=== PATIENT | female | born 1955 | race Two or more races ===

== ENCOUNTER 2021-06-15 03:46 | Emergency (ER) | payer OTHER ==
[~2021-06-15] VITALS: Ht 170.2 cm; Wt 99.8 kg
[2021-06-15] MEDS ORDERED: ZESTRIL10 M1 PO (03:57)
[2021-06-15] MEDS ORDERED: BENADRYL50 MG PO (03:58)
[2021-06-15] MEDS ORDERED: MEDROLPACK PO (10:25)
[2021-06-15] MEDS ORDERED: LOSARTAN POTASS25 MG PO (10:25)
[2021-06-15] MEDS ORDERED: ALLERGY RELIEF10 M3 PO (10:25)
[2021-06-15] MEDS ORDERED: PEPCID AC20 MG PO (10:25)
== END 2021-06-15 11:35 | disposition home or self-care (01) ==
LOC: ER 03:46
DX: T78.3XXA Angioneurotic edema, initial encounter (principal)

== ENCOUNTER 2022-09-27 09:53 | Outpatient (CLI) | payer OTHER ==
[~2022-09-27 09:53] MED LIST: ALLERGY RELIEF10 M3 PO; BENADRYL50 MG PO; LOSARTAN POTASS25 MG PO; MEDROLPACK PO; PEPCID AC20 MG PO; ZESTRIL10 M1 PO
== END 2022-09-27 09:55 | disposition home or self-care (01) ==
LOC: LAB 09:53
PROVIDERS: ATTEND Internal Medicine Gastroenterology
DX: R10.13 Epigastric pain (principal)

== ENCOUNTER 2022-09-29 08:45 | Outpatient (CLI) | payer OTHER | END 2022-09-29 08:48 | disposition home or self-care (01) | LOC: SONOGRAMA 08:45 | PROVIDERS: ATTEND Internal Medicine Gastroenterology | DX: I10 Essential (primary) hypertension (principal); K76.89 Other specified diseases of liver ==

== ENCOUNTER 2022-10-04 12:31 | Outpatient (CLI) | payer OTHER | END 2022-10-04 12:32 | disposition home or self-care (01) | LOC: NUCLEAR 12:31 | PROVIDERS: ATTEND General Practice | DX: Z13.820 Encounter for screening for osteoporosis (principal); M85.89 Other specified disorders of bone density and structure, multiple sites; E55.9 Vitamin D deficiency, unspecified ==

== ENCOUNTER 2022-10-04 13:00 | Outpatient (CLI) | payer OTHER | END 2022-10-04 13:02 | disposition home or self-care (01) | LOC: LAB 13:00 | PROVIDERS: ATTEND General Practice | DX: N39.0 Urinary tract infection, site not specified (principal); R31.9 Hematuria, unspecified; K76.89 Other specified diseases of liver; R94.5 Abnormal results of liver function studies ==

== ENCOUNTER 2022-10-11 08:44 | Outpatient (CLI) | payer OTHER | END 2022-10-11 09:00 | disposition home or self-care (01) | LOC: TOM 08:44 | PROVIDERS: ATTEND General Practice | DX: K76.89 Other specified diseases of liver (principal); R94.5 Abnormal results of liver function studies | CPT/HCPCS: 74177; Q9965 ==

== ENCOUNTER 2022-10-11 10:14 | Outpatient (CLI) | payer OTHER | END 2022-10-11 10:23 | disposition home or self-care (01) | LOC: LAB 10:14 | PROVIDERS: ATTEND Radiology Diagnostic Radiology | DX: K76.89 Other specified diseases of liver (principal) ==

== ENCOUNTER 2022-12-29 12:16 | Outpatient (CLI) | payer OTHER | END 2022-12-29 12:21 | disposition home or self-care (01) | LOC: RAD 12:16 | DX: M25.562 Pain in left knee (principal) ==

== ENCOUNTER → 2023-02-09 | Outpatient (CLI) | payer OTHER | END | disposition home or self-care (01) | LOC: TOM 11:27 | DX: R04.0 Epistaxis (principal); I10 Essential (primary) hypertension ==

== ENCOUNTER 2023-08-22 09:42 | Outpatient (CLI) | payer OTHER | END 2023-08-22 09:47 | disposition home or self-care (01) | LOC: MAMO-SONO 09:42 | PROVIDERS: ATTEND General Practice | DX: K76.89 Other specified diseases of liver (principal); Z12.31 Encounter for screening mammogram for malignant neoplasm of breast ==

== ENCOUNTER 2023-10-30 10:45 | Outpatient (CLI) | payer OTHER | END 2023-10-30 10:46 | disposition home or self-care (01) | LOC: NUCLEAR 10:45 | PROVIDERS: ATTEND General Practice | DX: I87.2 Venous insufficiency (chronic) (peripheral) (principal); R20.2 Paresthesia of skin ==

== ENCOUNTER → 2023-10-31 10:54 | Outpatient (CLI) | payer OTHER | END | disposition home or self-care (01) | LOC: NUCLEAR 10:54 | PROVIDERS: ATTEND General Practice | DX: I73.9 Peripheral vascular disease, unspecified (principal); R20.2 Paresthesia of skin ==

== ENCOUNTER 2023-12-24 14:14 | Outpatient (CLI) | payer OTHER | END 2023-12-24 14:19 | disposition home or self-care (01) | LOC: RAD 14:14 | PROVIDERS: ATTEND General Practice | DX: M54.50 Low back pain, unspecified (principal); M62.830 Muscle spasm of back ==

== ENCOUNTER 2023-12-31 13:00 | Outpatient (CLI) | payer OTHER | END 2023-12-31 13:08 | disposition home or self-care (01) | LOC: MRI 13:00 | PROVIDERS: ATTEND General Practice | DX: R20.2 Paresthesia of skin (principal); M54.31 Sciatica, right side; M54.50 Low back pain, unspecified | CPT/HCPCS: 72148 ==

== ENCOUNTER 2024-09-20 17:32 | Emergency (ER) | payer OTHER ==
[~2024-09-20] VITALS: Ht 170.2 cm; Wt 80.3 kg
[2024-09-20] MEDS ORDERED: MEDI-MECLIZINE25 MG (18:01)
[2024-09-20] MEDS ORDERED: AMOX1TAB5 (18:02)
[2024-09-20] MEDS ORDERED: COZAAR25 MG PO (18:03)
[2024-09-20] MEDS ORDERED: AMITRIPTYLINE H25 MG PO (18:03)
[2024-09-20] MEDS ORDERED: AMLODIPINE-OLM1 EAC2 (18:04)
[2024-09-20] MEDS ORDERED: ALLERGY RELIEF10 M3 (18:04)
[2024-09-20] MEDS ORDERED: ACETAMINOPHEN 325 MG TABLET PO STA (18:57)
[2024-09-20 20:26] LABS: HEMATOCRIT 39.9 % (36.0-45.00); HEMOGLOBIN 13.4 g/dL (12.0-15.00); MEAN CELL VOLUME 84.3 fL (80.00-100.00); MEAN CORPUSCULAR HEMOGLOBIN 28.3 pg (27.00-32.0); MEAN CORPUSCULAR HGB CONC 33.6 g/dl (32.0-36.0); RED BLOOD COUNT 4.73 M/uL (4.00-6.00); RED CELL DISTRIBUTION WIDTH 13.8 % (11.5-14.5)
[2024-09-20 20:27] LABS: PLATELET COUNT 71 K/uL (150-450)
[2024-09-20 20:42] LABS: PH,URINE 5.5 (5.0-8.0); URINE APPEARANCE Clear; URINE BILIRRUBIN Small (NEGATIVE); URINE BLOOD Large; URINE COLOR Dark Yellow; URINE GLUCOSE Negative (NEGATIVE); URINE KETONE 15 (NEGATIVE); URINE LEUKOCYTE Trace; URINE NITRATE Negative; URINE PROTEIN Trace (NEGATIVE)
[2024-09-20 20:45] LABS: URINE BACTERIA 127.2 uL (0.0-1933); URINE EPITHELIAL CELLS 17.5 uL (0.0-38.8); URINE RBC 222.2 uL (0.0-20.8); URINE WBC 24.3 uL (0.0-23.2)
[2024-09-20 21:00] LABS: URINE CAST 1.32 uL (0.0-1.40)
[2024-09-20 21:10] LABS: ALBUMIN 3.7 gm/dL (3.4-5.0); BILIRUBIN TOTAL 0.68 mg/dL (0.3-1.2); CALCIUM 8.8 mg/dL (8.5-10.1); CREATININE SERUM 0.9 mg/dL (0.55-1.02); GFR 61.72; GLOBULINA 3.4 G/DL (2.4-3.5); POTASSIUM 3.64 mEq/L (3.5-5.1); TOTAL PROTEIN 7.1 gm/dL (6.4-8.2)
[2024-09-20] MEDS ORDERED: 0.9 % SODIUM CHLORIDE 500 ML IV STA (21:23)
== END 2024-09-21 00:17 | disposition home or self-care (01) ==
LOC: ER 17:34
PROVIDERS: General Practice
DX: A90 Dengue fever [classical dengue] (principal); R51.9 Headache, unspecified; Z20.822 Contact with and (suspected) exposure to COVID-19; Z88.8 Allergy status to other drugs, medicaments and biological substances; Z91.018 Allergy to other foods
CPT/HCPCS: 36415; 96365; 96366; 99282; J7042

== ENCOUNTER 2024-09-21 10:34 | Emergency (ER) | payer OTHER ==
[~2024-09-21] VITALS: Ht 170.2 cm; Wt 79.4 kg
[~2024-09-21 10:34] MED LIST changes: +ALLERGY RELIEF10 M3; +AMITRIPTYLINE H25 MG PO; +AMLODIPINE-OLM1 EAC2; +AMOX1TAB5; +COZAAR25 MG PO; +MEDI-MECLIZINE25 MG
[2024-09-21 11:31] LABS: HEMATOCRIT 38.4 % (36.0-45.00); HEMOGLOBIN 13.1 g/dL (12.0-15.00); MEAN CELL VOLUME 83.2 fL (80.00-100.00); MEAN CORPUSCULAR HEMOGLOBIN 28.4 pg (27.00-32.0); MEAN CORPUSCULAR HGB CONC 34.1 g/dl (32.0-36.0); RED BLOOD COUNT 4.61 M/uL (4.00-6.00); RED CELL DISTRIBUTION WIDTH 13.9 % (11.5-14.5)
[2024-09-21 11:32] LABS: PLATELET COUNT 73 K/uL (150-450)
[2024-09-21] MEDS ORDERED: 0.9 % SODIUM CHLORIDE 1,000 ML IV ONE (11:45)
[2024-09-21 15:27] LABS: HEMATOCRIT 40.4 % (36.0-45.00); HEMOGLOBIN 13.5 g/dL (12.0-15.00); MEAN CELL VOLUME 84.8 fL (80.00-100.00); MEAN CORPUSCULAR HEMOGLOBIN 28.4 pg (27.00-32.0); MEAN CORPUSCULAR HGB CONC 33.5 g/dl (32.0-36.0); RED BLOOD COUNT 4.77 M/uL (4.00-6.00); RED CELL DISTRIBUTION WIDTH 13.9 % (11.5-14.5)
[2024-09-21 15:29] LABS: PLATELET COUNT 65 K/uL (150-450)
== END 2024-09-21 16:08 | disposition home or self-care (01) ==
LOC: ER 10:34
PROVIDERS: General Practice
DX: R53.81 Other malaise (principal); A90 Dengue fever [classical dengue]; I10 Essential (primary) hypertension; Z91.018 Allergy to other foods
CPT/HCPCS: 36415; 96365; 99282; J7030

== ENCOUNTER 2024-09-22 09:39 | Inpatient (IN) | payer OTHER ==
[~2024-09-22] VITALS: Ht 170.2 cm; Wt 79.4 kg
--- NOTE | 2024-09-22 09:52 | NUR ---
PACIENTE FEMENINA ALERTA Y ORIENTADA X3, REFIERE FIEBRE Y REMA DOLOR DE SUSAN.
[2024-09-22] MEDS ORDERED: 0.9 % SODIUM CHLORIDE 500 ML IV STA (12:03)
[2024-09-22] MEDS ORDERED: PANTOPRAZOLE SODIUM 40 MG/VIAL VIAL IV PUSH STA (12:03)
[2024-09-22] MEDS ORDERED: ACETAMINOPHEN 325 MG TABLET PO STA (12:05)
[2024-09-22 12:59] LABS: HEMATOCRIT 40.9 % (36.0-45.00); HEMOGLOBIN 13.9 g/dL (12.0-15.00); MEAN CELL VOLUME 83.4 fL (80.00-100.00); MEAN CORPUSCULAR HEMOGLOBIN 28.5 pg (27.00-32.0); MEAN CORPUSCULAR HGB CONC 34.1 g/dl (32.0-36.0); RED CELL DISTRIBUTION WIDTH 13.8 % (11.5-14.5)
[2024-09-22 13:10] LABS: ALBUMIN 3.4 gm/dL (3.4-5.0); BILIRUBIN TOTAL 0.63 mg/dL (0.3-1.2); CALCIUM 8.5 mg/dL (8.5-10.1); CREATININE SERUM 0.9 mg/dL (0.55-1.02); GFR 61.72; GLOBULINA 3.7 G/DL (2.4-3.5); POTASSIUM 3.42 mEq/L (3.5-5.1); TOTAL PROTEIN 7.1 gm/dL (6.4-8.2)
[2024-09-22 13:19] LABS: INR 1.07; PARTIAL THROMBOPLASTIN TIME 30.8 SECONDS (22.0-34.0); PROTHROMBIN TIME 11.6 SECONDS (9.0-11.5)
--- NOTE | 2024-09-22 13:20 | NUR ---
SE ORIENTA A PACIENTE SOBRE TRATAMIENTO MEDICO, REFIERE ENTENDER. SE COLECTAN MUESTRAS DE LABORATORIO Y SE CANALIZA A PACIENTE BAJO MEDIDAS ASEPTICAS. SE ADMINISTRAN MEDICAMENTOS CHAD ORDEN MEDICA.
[2024-09-22 13:31] LABS: PLATELET COUNT 60 K/uL (150-450)
[2024-09-22] MEDS ORDERED: 0.9 % SODIUM CHLORIDE 1,000 ML IV SCH (18:45)
[2024-09-22] MEDS ORDERED: ACETAMINOPHEN 500 MG GEL..CAP PO PRN (19:00)
[2024-09-22 21:43] LABS: URINE APPEARANCE Clear; URINE BILIRRUBIN Negative (NEGATIVE); URINE BLOOD Large; URINE COLOR Yellow; URINE GLUCOSE Negative (NEGATIVE); URINE KETONE 15 (NEGATIVE); URINE LEUKOCYTE Negative; URINE NITRATE Negative; URINE PROTEIN Trace (NEGATIVE)
[2024-09-22 21:46] LABS: URINE BACTERIA 94.2 uL (0.0-1933); URINE EPITHELIAL CELLS 7.2 uL (0.0-38.8); URINE RBC 145.6 uL (0.0-20.8); URINE WBC 3.6 uL (0.0-23.2)
[2024-09-22 22:30] VITALS: BP 141/85; O2SAT 97
[2024-09-23 00:40] VITALS: BP 128/79; O2SAT 98
[2024-09-23 07:13] LABS: HEMATOCRIT 36.1 % (36.0-45.00); HEMOGLOBIN 12.4 g/dL (12.0-15.00); MEAN CELL VOLUME 82.3 fL (80.00-100.00); MEAN CORPUSCULAR HEMOGLOBIN 28.3 pg (27.00-32.0); MEAN CORPUSCULAR HGB CONC 34.4 g/dl (32.0-36.0); RED BLOOD COUNT 4.38 M/uL (4.00-6.00)
[2024-09-23 07:42] LABS: PLATELET COUNT 52 K/uL (150-450)
[2024-09-23] MEDS ORDERED: AMLODIPINE BESYLATE 5 MG TABLET PO SCH (09:00)
[2024-09-23] MEDS ORDERED: PANTOPRAZOLE SODIUM 40 MG/VIAL VIAL IV SCH (09:00)
[2024-09-23] MEDS ORDERED: LOSARTAN POTASSIUM 25 MG TABLET PO SCH (09:00)
[2024-09-23 09:44] VITALS: BP 113/69; O2SAT 99
[2024-09-23 17:12] VITALS: BP 120/83; O2SAT 100
[2024-09-23 22:47] VITALS: BP 136/85; O2SAT 96
[2024-09-24 01:19] VITALS: BP 110/73; O2SAT 100
[2024-09-24 07:56] LABS: HEMATOCRIT 34.3 % (36.0-45.00); HEMOGLOBIN 11.6 g/dL (12.0-15.00); MEAN CELL VOLUME 83.2 fL (80.00-100.00); MEAN CORPUSCULAR HEMOGLOBIN 28.1 pg (27.00-32.0); MEAN CORPUSCULAR HGB CONC 33.7 g/dl (32.0-36.0); RED BLOOD COUNT 4.13 M/uL (4.00-6.00); RED CELL DISTRIBUTION WIDTH 13.6 % (11.5-14.5)
[2024-09-24 08:42] LABS: PLATELET COUNT 67 K/uL (150-450)
[2024-09-24 08:51] VITALS: BP 110/70; O2SAT 98
== END 2024-09-24 16:47 | disposition home or self-care (01) | DRG 866 ==
LOC: ER 09:41 → MEDJ 19:52
PROVIDERS: General Practice; ADMIT Student in an Organized Health Care Education/Training Program; ATTEND Student in an Organized Health Care Education/Training Program
PROC: BW40ZZZ Ultrasonography of Abdomen (ICD-10-PCS; principal; 2024-09-22)
DX: A90 Dengue fever [classical dengue] (principal); D69.6 Thrombocytopenia, unspecified; I10 Essential (primary) hypertension

== ENCOUNTER 2024-11-04 10:03 | Outpatient (CLI) | payer OTHER | END 2024-11-04 10:12 | disposition home or self-care (01) | LOC: MAMO-SONO 10:03 | PROVIDERS: ATTEND General Practice | DX: Z12.31 Encounter for screening mammogram for malignant neoplasm of breast (principal) ==

== ENCOUNTER 2024-12-05 13:25 | Outpatient (CLI) | payer OTHER | END 2024-12-05 13:30 | disposition home or self-care (01) | LOC: NUCLEAR 13:25 | PROVIDERS: ATTEND General Practice | DX: Z13.820 Encounter for screening for osteoporosis (principal); M85.80 Other specified disorders of bone density and structure, unspecified site; M81.0 Age-related osteoporosis without current pathological fracture ==